=== PATIENT | male | born 1985 | race Caucasian/White ===

== ENCOUNTER 2017-02-27 07:20 | Emergency (ER) | payer OTHER ==
[2017-02-27] MEDS ORDERED: DEXAMETHASONE 10 MG/ML VIAL PO STA (08:42)
[2017-02-27] MEDS ORDERED: KETOROLAC 60 MG/2 ML VIAL IM STA (08:42)
[2017-02-27] MEDS ORDERED: KETOROLAC 60 MG/2 ML VIAL ONE (08:49)
[2017-02-27] MEDS ORDERED: CHERRY SYRUP 10 ML UDC PO ONE (08:49)
[2017-02-27] MEDS ORDERED: DEXAMETHASONE 10 MG/ML VIAL ONE (08:49)
== END 2017-02-27 09:22 | disposition home or self-care (01) ==
DX: M43.6 Torticollis (principal)
CPT/HCPCS: 96372; 99283; A9270

== ENCOUNTER 2017-04-03 17:42 | Emergency (ER) | payer OTHER ==
[2017-04-03 17:47] VITALS: BP 128/75
[2017-04-03] MEDS ORDERED: KETOROLAC 60 MG/2 ML VIAL IM STA (18:12)
[2017-04-03] MEDS ORDERED: diazePAM INJ 5 MG/ML SYRINGE IM STA (18:12)
[2017-04-03] MEDS ORDERED: HYDROcod/ACET 5/325 Prepack 6 PO STA (18:13)
[2017-04-03] MEDS ORDERED: CYCLOBENZAPRINE 10 MG Prepack 2 PO PRN (18:13)
[2017-04-03] MEDS ORDERED: HYDROcod/ACET 5/325 Prepack 6 PO ONE (18:17)
[2017-04-03] MEDS ORDERED: CYCLOBENZAPRINE 10 MG Prepack 2 PO ONE (18:17)
[2017-04-03] MEDS ORDERED: KETOROLAC 60 MG/2 ML VIAL ONE (18:17)
[2017-04-03] MEDS ORDERED: diazePAM INJ 5 MG/ML SYRINGE ONE (18:17)
--- NOTE | 2017-04-03 18:17 | ED Physician Documentation ---
PD HPI NECK PAIN - Stated complaint Stated Complaint: NECK PX - Chief complaint Chief Complaint: Back Pain - History obtained from History obtained from: Patient, Family - History of Present Illness Timing - onset: Other (He woke today with right-sided neck pain without specific injury. He had a similar episode a month ago which improved after medications. He has no underlying medical issues. The pain does not radiate but has a spasm-like severe component to it.) Review of Systems Constitutional: denies: Fever, Chills Throat: reports: Reviewed and negative Cardiac: reports: Reviewed and negative Respiratory: reports: Reviewed and negative PD PAST MEDICAL HISTORY - Present Medications Home Medications: Ambulatory Orders Medication Instructions Recorded Confirmed HYDROcod/ACETAM 5/325 [[place] 5/325] 1 - 2 ea PO Q6H PRN #15 tablet 04/03/17 diazePAM [Valium] 5 mg PO TID PRN #15 tablet 04/03/17 - Allergies Allergies/Adverse Reactions: Allergies Allergy/AdvReac Type Severity Reaction Status Date / Time No Known Drug Allergies Allergy Verified 04/03/17 17:47 - Social History Does the pt smoke?: No Smoking Status: Never smoker - Immunizations Immunizations are current?: Yes PD ED PE NORMAL - Vitals Vital signs reviewed: Yes - General General: Alert and oriented X 3 - Neck Neck: Supple, no meningeal sign, Other (Uncomfortable in holding his neck slightly rotated to the left, tender over the right sternocleidomastoid without midline tenderness. Equal upper extremity chief of pediatric urology strength, thumb extension, interossei, wrist flexion and extension. Symmetric sensation throughout the arms and symmetric reflexes.) - Abdomen Abdomen: Non tender - Neuro Neuro: Alert and oriented X 3, Normal speech - Psych Psych: Normal mood, Normal affect Results - Vitals Vitals: Vital Signs - 24 hr 04/03/17 17:45 Temperature 36.3 C L Heart Rate 80 Respiratory 16 Rate Blood Pressure 128/75 O2 Saturation 97 Oxygen O2 Source Room air PD MEDICAL DECISION MAKING - ED course ED course: The patient and family were counseled as to the diagnosis and need for followup. I counseled the patient with regard to signs and symptoms that would necessitate an urgent reevaluation in the emergency department. They understand they are welcome to return at any time if worse or if not improving as expected. This document was made in part using voice recognition software. While efforts are made to proofread this document, sound alike and grammatical errors may occur. Departure - Departure Disposition: 01 Home, Self Care Clinical Impression: Wry neck Condition: Good Record reviewed to determine appropriate education?: Yes Instructions: Torticollis Prescriptions: HYDROcod/ACETAM 5/325 [[place] 5/325] 1 - 2 ea PO Q6H PRN #15 tablet PRN Reason: Pain diazePAM [Valium] 5 mg PO TID PRN #15 tablet PRN Reason: Spasms Comments: Call your doctor to arrange a follow up appointment. Make the next available appointment. In the interim return anytime if worse or if new symptoms develop. Do not drink or drive while on narcotic pain medicine. Note that many narcotic pain relievers also contain tylenol/acetaminophen. Please ensure that your total dose of acetaminophen from all sources does not exceed 3 grams (3000mg) per day. You may constipated on this medication, take a stool softener such as "Colace" twice a day while you are on it. Also recommend a [id number] laxative such as senna or MiraLAX any day that you do not have a bowel movement. If you received narcotic pain medication in the emergency department, do not drive or operate machinery for the next 24 hours.
== END 2017-04-03 18:28 | disposition home or self-care (01) ==
LOC: ED 17:42
DX: M43.6 Torticollis (principal)
CPT/HCPCS: 96372; 99283

== ENCOUNTER 2019-04-07 04:59 | Emergency (ER) | payer OTHER ==
--- NOTE | 2019-04-07 05:24 | ED Physician Documentation ---
PD HPI BACK PAIN - Stated complaint Stated Complaint: BACK PAIN - Chief complaint Chief Complaint: Back Pain - History obtained from History obtained from: Patient - History of Present Illness Timing - onset: Last night Timing - details: Abrupt onset Pain level now: 9 Location: Lower, Right, Left Quality: Pain, Spasm, Similar to prior episodes Associated symptoms: No: Fever, Weakness, Numbness, Incontinent of urine, Unable to urinate, Incontinent of stool Improves with: Rest Worsened by: Movement Recently seen: Not recently seen - Additional information Additional information: while playing basketball last night, patient landed after a layup; he landed on his feet (did not fall) but had sudden onset of LBP across lower back, worse on left. The pain gradually worsened, but he was able to fall asleep after taking Robaxin. After only a few hours of sleep, he awoke due to now severe LBP. has had similar back pain in the past Review of Systems Constitutional: denies: Fever : denies: Incontinent Musculoskeletal: reports: Back pain. denies: Neck pain, Extremity pain, Joint pain, Extremity swelling, Joint swelling Neurologic: denies: Focal weakness, Numbness PD PAST MEDICAL HISTORY - Past Medical History Past Medical History: Yes Musculoskeletal: Chronic back pain - Past Surgical History Past Surgical History: Yes - Present Medications Home Medications: Ambulatory Orders Medication Instructions Recorded Confirmed HYDROcod/ACETAM 5/325 [[place] 5/325] 1 - 2 ea PO Q6H PRN #15 tablet 04/03/17 diazePAM [Valium] 5 mg PO TID PRN #15 tablet 04/03/17 Oxycodone HCl/Acetaminophen 1 - 2 each PO Q6H PRN #14 tablet 04/07/19 [Percocet 5-325 mg Tablet] diazePAM [Valium] 5 - 10 mg PO TID PRN #15 tablet 04/07/19 - Allergies Allergies/Adverse Reactions: Allergies Allergy/AdvReac Type Severity Reaction Status Date / Time No Known Drug Allergies Allergy Verified 04/03/17 17:47 - Social History Does the pt smoke?: No Smoking Status: Never smoker Does the pt drink ETOH?: Yes Does the pt have substance abuse?: No - Immunizations Immunizations are current?: Yes PD ED PE NORMAL - Vitals Vital signs reviewed: Yes - General General: Alert and oriented X 3, Well developed/nourished, Other (NAD at rest but obvious severe painful distress with any movement involving lower back) - Neck Neck: No bony TTP - Cardiac Cardiac: RRR, No murmur - Respiratory Respiratory: No respiratory distress, Clear bilaterally - Back Back: No CVA TTP, Other (bilateral parathroracic tenderness, L>R) - Neuro Neuro: No motor deficit, No sensory deficit Results - Vitals Vitals: Vital Signs - 24 hr 04/07/19 04/07/19 04/07/19 05:02 05:17 06:52 Temperature 36.5 C Heart Rate 99 72 Respiratory 28 H 22 20 Rate Blood Pressure 127/82 H 136/66 H O2 Saturation 98 98 04/07/19 07:52 Temperature 36.6 C Heart Rate 70 Respiratory 17 Rate Blood Pressure 124/54 L O2 Saturation 100 Oxygen O2 Source Room air PD MEDICAL DECISION MAKING - ED course Complexity details: re-evaluated patient, considered differential, d/w patient ED course: appeared more comfortable and reported some relief with 2mg IM dilaudid and 5mg PO valium ,but pain rapidly worsened with movement and thus given repeat dose of both of these medications. On reevaluation after repeat doses, he is clearly more comfortable and reports adequate relief Departure - Departure Disposition: 01 Home, Self Care Clinical Impression: Back pain Condition: Good Instructions: ED Sprain Strain Lumbar Follow-Up: JENNIFER KELLY [Primary Care Provider] - Prescriptions: diazePAM [Valium] 5 - 10 mg PO TID PRN #15 tablet PRN Reason: Spasms Oxycodone HCl/Acetaminophen [Percocet 5-325 mg Tablet] 1 - 2 each PO Q6H PRN #14 tablet PRN Reason: pain Forms: Activity restrictions Discharge Date/Time: 04/07/19 07:52
[2019-04-07] MEDS ORDERED: diazePAM 5 MG TABLET PO STA ×2 (05:38→06:44)
[2019-04-07] MEDS ORDERED: HYDROmorphone 1 MG/ML CARPUJECT IM STA ×2 (05:38→06:44)
[2019-04-07 07:53] VITALS: BP 124/54
== END 2019-04-07 07:52 | disposition home or self-care (01) ==
LOC: ED 04:59
DX: M54.5 Low back pain (principal)
CPT/HCPCS: 96372; 99283; A9270; J1170

== ENCOUNTER 2019-04-23 10:40 | Outpatient (CLI) | payer OTHER | END 2019-04-23 10:41 | disposition home or self-care (01) | LOC: SC 10:40 | PROVIDERS: ATTEND Internal Medicine Pulmonary Disease | DX: R06.83 Snoring (principal); R06.81 Apnea, not elsewhere classified; G47.8 Other sleep disorders; R41.89 Other symptoms and signs involving cognitive functions and awareness; G47.10 Hypersomnia, unspecified; E66.9 Obesity, unspecified; Z68.31 Body mass index [BMI] 31.0-31.9, adult | CPT/HCPCS: 99203; 99212 ==

== ENCOUNTER 2019-05-07 19:25 | Outpatient (CLI) | payer OTHER | END 2019-05-07 19:26 | disposition home or self-care (01) | LOC: SC 19:25 | PROVIDERS: ATTEND Internal Medicine Pulmonary Disease | DX: R06.83 Snoring (principal); R06.81 Apnea, not elsewhere classified; R51 Headache | CPT/HCPCS: 95810 ==

== ENCOUNTER 2019-05-19 19:18 | Outpatient (CLI) | payer OTHER | END 2019-05-19 19:19 | disposition home or self-care (01) | LOC: SC 19:18 | PROVIDERS: ATTEND Internal Medicine Pulmonary Disease | DX: R06.83 Snoring (principal) | CPT/HCPCS: 95810 ==

== ENCOUNTER 2019-08-06 09:11 | Outpatient (CLI) | payer OTHER ==
[2019-08-06 10:21] VITALS: BP 130/82
--- NOTE | 2019-08-06 10:21 | SLEEP CARE CONSULTATION ---
Information from patient questionnaire entered by Heydi Reynoso. I have reviewed and concur with the information entered by Heydi Reynoso. This document represents the service I personally performed and the decisions made by me, Merari Dewitt, RN, MSN, CERTIFIER. History of Present Illness Initial [place] Sleepiness Scale score: 17 Current [place] Sleepiness Scale score: 17 Additional HPI information: DI ZUNIGA returns for follow up of the recently performed polysomnography and informed of findings. Patient stated he has gained 20 pounds since last seen and since sleep study. He has noted increased fragmentation of sleep. He was videoed by girlfriend of oral venting /m puffing in his sleep. She has also noted gurgling when he sleeps on his back nightly so his girlfriend will turn him to his side and his symptoms resolve. His snoring is louder and he is now waking himself up to his snore most nights. He is waking to dry throat in the morning. He also is waking gasping in his sleep a few times a week. He is continued to wake up tired and is tired and sleepy through out the day. The patient was informed of the polysomnography findings as noted later in report I explained the pathophysiology behind obstructive sleep apnea. Patient does not have sleep apnea and was advised how weight gain could increase the risk of developing sleep apnea in the future. I strongly encouraged the patient to lose weight. Since his symptoms are increased with current weight gain especially on his back. . Patient has snoring. Snoring can be reduced by weight loss. Weight loss is best achieved with diet consult. Patient instructed to contact PCP for referral if considers. Snoring can also be treated with an oral appliance from a dentist. Advised to check insurance coverage if considers. In addition, an ENT evaluation can be do to see if other treatment is indicated. Patient counseled not drink alcohol less than 4 hours before bedtime as it can increase snoring and apnea. Patient was cautioned about risks of drowsy driving until sleepiness symptoms resolve. Patient denies drowsy driving. AAS patient education on snoring and sleep apnea given and reviewed. Sleep Study - Polysomnography Polysomnography findings: The quality of the study is good. The patient had slightly reduced sleep efficiency due to a prolonged awakening in the middle of the night.. The sleep architecture was otherwise normal. Respiratory monitoring showed no significant sleep disordered breathing (AHI = 1.2) or hypoxia (luís oxygen saturation of 89%). The patient slept adequately in supine position (supine AHI = 2.0; non- supine = 0.56). Snore was light to moderate in intensity. There was no significant periodic leg movement of sleep. Cardiac rhythm was normal sinus rhythm without significant arrhythmia. No abnormal behavior (parasomnia) observed during the night. Allergies and Home Medications Known drug allergies: No Home medication list reviewed: Yes (Cautioned of effects of pain medications and muscle relaxants to apnea) Review of Systems Review of systems same as previous: Yes Physical Exam Blood Pressure: 130/82 Heart Rate: 71 O2 Saturation: 97 Height: 6 ft 1.5 in Weight: 270 lb 12.8 oz Weight change since last visit: gained 20 pounds and was not this weight at time of sleep study. Body Mass Index: 35.2 BMI Classification: Obesity Class 2 Neck circumference: 17 (increaed from 16. 5 inches ) Nostrils: patent to airflow Mouth and throat: normal Soft palate: normal Hard palate: normal Uvula: normal Uvula visualization: 50% Mallampati Class II Tongue: normal in size Tonsils: small Chin and jaw: normal size and position Heart: regular rate and rhythm Impression and Plan 1. Snoring but no significant sleep disordered breathing on this sleep study. Patient advised that often weight loss will reduce snoring as well as apnea risk. However, he has gained significant weight since his past sleep study with increased symptoms noted at night as noted below. 2. Suspected sleep apnea. Current symptoms include waking to snoring and gasping in sleep. His girlfriend has noted increased snoring and gurgling in his sleep in supine position. Patient reports waking 3-4 times a nights to bathroom or unknown reason as well as unrefreshed sleep, fatigue and excessive daytime sleepiness. Thus a repeat sleep study is advised for further evaluation due to increase in symptoms since weight gain of 20 pounds increasing his BMI from 32.5 to 35.2 which can increase apnea risk. His neck circumference has also increased to 17 inches which will increase apnea risk. Due to difficulty sleeping at polysomnography except with use of an Ambien, I recommend a home sleep study. Until then, he is advised to avoid supine sleep with pillow positioning until sleep study is repeated. Patient agreed with plan. For his concerns about waking after 4 hours and unable to return to sleep due to things on his mind and adjustment to recent divorce, I suggested he speak to his PCP about counseling referral. 1. Schedule home sleep study 2. Avoid supine sleep until sleep study. 3. Attempt to lose weight. 4. Follow up with PCP re counseling. 4. Return to review results. I spent 100% of this 30 minute visit face to face with the patient with greater than 50% of this was spent time counseling the patient and coordination of care.
== END 2019-08-06 09:12 | disposition home or self-care (01) ==
LOC: SC 09:11
PROVIDERS: ATTEND Nurse Practitioner Family
DX: R06.83 Snoring (principal); R53.83 Other fatigue; G47.10 Hypersomnia, unspecified; E66.9 Obesity, unspecified; Z68.35 Body mass index [BMI] 35.0-35.9, adult
CPT/HCPCS: 99212; 99214

== ENCOUNTER 2019-09-19 19:30 | Outpatient (CLI) | payer OTHER | END 2019-09-19 23:59 | disposition home or self-care (01) | LOC: SC 19:30 | PROVIDERS: ATTEND Internal Medicine Pulmonary Disease | DX: R06.83 Snoring (principal); G47.10 Hypersomnia, unspecified; G47.00 Insomnia, unspecified | CPT/HCPCS: 95806 ==

== ENCOUNTER 2019-12-05 08:31 | Outpatient (CLI) | payer OTHER ==
[2019-12-05 09:02] VITALS: BP 110/80
--- NOTE | 2019-12-05 09:02 | SLEEP CARE CONSULTATION ---
Information from patient questionnaire entered by Jessenia Givens. I have reviewed and concur with the information entered by Jessenia Givens. This document represents the service I personally performed and the decisions made by me, Merari Dewitt, RN, MSN, HOSPITAL INSURANCE REPRESENTATIVE. History of Present Illness Initial [place] Sleepiness Scale score: 17 Current [place] Sleepiness Scale score: 17 Additional HPI information: DI ZUNIGA returns for follow up of the recently performed home sleep study. I explained the pathophysiology behind obstructive sleep apnea. Patient does not have sleep apnea and was advised how weight gain could increase the risk of developing sleep apnea in the future. I strongly encouraged the patient to continue lose weight. Patient has snoring. Snoring can be reduced by weight loss. Weight loss is best achieved with diet consult. Patient instructed to contact PCP for referral. Snoring can also be treated with an oral appliance from a dentist. Advised to check insurance coverage if pursues this treatment. In addition, an ENT evaluation can be do to see if other treatment is indicated. Patient counseled not drink alcohol less than 4 hours before bedtime as it can increase snoring and apnea. Patient was cautioned about risks of drowsy driving until sleepiness symptoms resolve. Patient denies drowsy driving. He strives for a regular sleep schedule when not interrupted by service, . Usual wake time is 5am and usual bedtime 9- 9:30pm. Allergies and Home Medications Known drug allergies: No Home medication list reviewed: Yes Allergy and home medication list: Flexeril 10mg prn ,none for months Review of Systems Review of systems same as previous: Yes Physical Exam Blood Pressure: 110/80 Cuff size: long Heart Rate: 70 O2 Saturation: 97 Height: 6 ft 1.5 in Weight: 266 lb Weight change since last visit: lost 4 pounds Body Mass Index: 34.6 BMI Classification: Obese Impression and Plan 1. Snoring, loud per girlfriend, but no significant sleep disordered breathing. Patient advised that often weight loss will reduce snoring as well as apnea risk. An oral appliance can also be used for snoring. This would require a dental consultation. Patient cautioned not to use other online appliances as can cause bite issues. Patient is not interested in oral appliance at this time . A list of accredited dentists in area and one local dentist who makes oral appliances given. Patient is advised to check if insurance will cover. An ENT consult can also be helpful to determine if any other treatment is an option. Currently patient does not have difficulty breathing through nose. But if weight loss does not reduce snoring a consultation is advisable. 2. Obesity, Patient has started to lost weight. Currently patients BMI is 35.2 obesity class 2. Obesity increases the risk of apnea, and overall health risks especially cardiovascular and diabetes. Thus patient is advised to continue to continue to lose weight. Weight loss can be done with reducing portion size, reducing refined foods and balancing content with vegetables, fruit and protein. In addition tracking food intake will allow awareness of how to modify diet to achieve weight loss goals. Also eating more slowly will allow more awareness of food intake and enjoyment of food while assisting patient to modify intake at each meal. A diet consultation can be helpful in achieving optimal weight loss goals. The BMI chart was reviewed. The patient would like to reduce to 210 pounds bringing BMI down to about 27. Patient encouraged to discuss their weight loss goals with their PCP and consider a referral to a intermediate card tender. 3. Fatigue and hypersomnia with [place] sleepiness scale of 17 despite regular sleep schedule and adequate sleep noted on sleep history. Thus Patient advised to follow up with PCP for further evaluation. He has a family history hypothyroidism so this as well as other medical conditions should be ruled out. * Continue to lose weight * Avoid alcohol consumption near bedtime * The patient is cautioned about driving until sleepiness is completely resolved. * Follow up with PCP for further evaluation of fatigue/hypersomnia and intermediate card tender referral. Time Spent with Patient (minutes): 25 I spent 100% of this visit face to face with the patient with greater than 50% of this was spent time counseling the patient and coordination of care.
== END 2019-12-05 08:32 | disposition home or self-care (01) ==
LOC: SC 08:31
PROVIDERS: ATTEND Nurse Practitioner Family
DX: R06.83 Snoring (principal); E66.9 Obesity, unspecified; Z68.34 Body mass index [BMI] 34.0-34.9, adult; R53.83 Other fatigue; G47.10 Hypersomnia, unspecified
CPT/HCPCS: 99212; 99214

== ENCOUNTER 2021-07-03 14:13 | Emergency (ER) | payer OTHER ==
[2021-07-03 15:06] LABS: BASOPHILS # (AUTO) 0.1 10^3/uL (0.0-0.1); BASOPHILS % (AUTO) 1.2 %; EOSINOPHILS # (AUTO) 0.1 10^3/uL (0.0-0.7); HCT - HEMATOCRIT 45.4 % (42.0-52.0); HGB - HEMOGLOBIN 15.8 g/dL (14.0-18.0); LYMPHOCYTES % (AUTO) 33.1 %; MEAN CORPUSCULAR HEMOGLOBIN 30.4 pg (27.0-31.0); MEAN CORPUSCULAR HGB CONC 34.8 g/dL (32.0-36.0); MEAN CORPUSCULAR VOLUME 87.5 fL (80.0-94.0); MEAN PLATELET VOLUME 10.5 fL (7.4-11.4); MONOCYTES # (AUTO) 0.5 10^3/uL (0.0-1.0); MONOCYTES % (AUTO) 8.1 %; NEUTROPHILS # (AUTO) 3.4 10^3/uL (1.5-6.6); NEUTROPHILS % (AUTO) 55.4 %; PLT - PLATELET COUNT 227 10^3/uL (130-450); RED BLOOD COUNT 5.19 10^6/uL (4.70-6.10); RED CELL DISTRIBUTION WIDTH 11.9 % (12.0-15.0)
[2021-07-03 15:16] LABS: ALBUMIN 4.5 g/dL (3.2-5.5); ALBUMIN/GLOBULIN RATIO 1.6 (1.0-2.2); CALCIUM 9.3 mg/dL (8.5-10.3); CREATININE 1.3 mg/dL (0.6-1.2); POTASSIUM 4.1 mmol/L (3.5-5.0); TOTAL PROTEIN 7.4 g/dL (6.7-8.2)
[2021-07-03] MEDS ORDERED: HYDROmorphone 1 MG/ML CARPUJECT IVP STA (15:42)
[2021-07-03] MEDS ORDERED: ONDANSETRON 4 MG/2 ML VIAL IVP STA (15:43)
--- NOTE | 2021-07-03 15:46 | ED Physician Documentation ---
History of Present Illness - Stated complaint Stated Complaint: ABD PX - Chief complaint Chief Complaint: Abd Pain - Additonal information Additional information: 36-year-old male presents the emergency department for evaluation of acute right lower quadrant and right groin pain. 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 He thought perhaps he may have pulled a muscle but over the last 72 hours pain is gotten progressively worse and now radiates to his testy. He is unable to walk without discomfort. No fevers or vomiting. Denies dysuria urgency or frequency. He thinks he may have a hernia though no history of similar in the past. No pertinent past surgical history. Denies any pertinent past medical history. Review of Systems Constitutional: denies: Fever, Chills Eyes: reports: Reviewed and negative Ears: reports: Reviewed and negative Throat: reports: Reviewed and negative Cardiac: reports: Reviewed and negative GI: reports: Abdominal Pain. denies: Nausea, Vomiting, Diarrhea, Bloody / black stool : denies: Dysuria, Hesitancy Skin: denies: Rash, Lesions Musculoskeletal: denies: Neck pain, Back pain Neurologic: reports: Reviewed and negative PD PAST MEDICAL HISTORY - Past Medical History Musculoskeletal: Chronic back pain - Past Surgical History Past Surgical History: Yes - Present Medications Home Medications: Ambulatory Orders Medication Instructions Recorded Confirmed HYDROcod/ACETAM 5/325 [[place] 5/325] 1 - 2 ea PO Q6H PRN #15 tablet 04/03/17 diazePAM [Valium] 5 mg PO TID PRN #15 tablet 04/03/17 Oxycodone HCl/Acetaminophen 1 - 2 each PO Q6H PRN #14 tablet 04/07/19 [Percocet 5-325 mg Tablet] diazePAM [Valium] 5 - 10 mg PO TID PRN #15 tablet 04/07/19 HYDROcod/ACETAM 5/325 [[place] 5/325] 1 tablet PO BID PRN #10 tablet 07/03/21 - Allergies Allergies/Adverse Reactions: Allergies Allergy/AdvReac Type Severity Reaction Status Date / Time No Known Drug Allergies Allergy Verified 04/03/17 17:47 - Social History Does the pt smoke?: No Smoking Status: Never smoker Does the pt drink ETOH?: Yes Does the pt have substance abuse?: No - Immunizations Immunizations are current?: Yes PD ED PE EXPANDED - General General: Alert, In Pain, In distress - Cardiac Cardiac: Regular Rate, Radial strong equal, Cap refill < 2 sec. No: Murmur Present - Respiratory Respiratory: Clear to ausultation triston. No: Distress, Labored - Abdomen Abdomen: Normal Bowel sounds, Tender to palpation (significant TTP RLQ; equivocal mcburneys; Tenderness righ tinguinal canal, but no palpable hernia. + cremasteric bilaterally. No scrotal swelling, tenderness) - Male Male : Normal lie/cremastaric, Other (unable to appreciate inguinal hernia). No: Testicular Mass, Tenderness - Derm Derm: Normal color, Warm and dry. No: Rash - Extremities Extremities: Normal. No: Deformity, Tenderness Results - Vitals Vitals: Vital Signs - 24 hr 07/03/21 14:23 Temperature 36.8 C Heart Rate 80 Respiratory 16 Rate Blood Pressure 128/98 H O2 Saturation 95 Oxygen O2 Source Room air - Labs Labs: Laboratory Tests 07/03/21 07/03/21 07/03/21 14:58 14:58 15:35 WBC 6.0 RBC 5.19 Hgb 15.8 Hct 45.4 MCV 87.5 MCH 30.4 MCHC 34.8 RDW 11.9 L Plt Count 227 MPV 10.5 Neut # (Auto) 3.4 Lymph # (Auto) 2.0 [place] # (Auto) 0.5 Eos # (Auto) 0.1 Baso # (Auto) 0.1 Absolute Nucleated RBC 0.00 Nucleated RBC % 0.0 Sodium 142 Potassium 4.1 Chloride 104 Carbon Dioxide 28 Anion Gap 10.0 BUN 20 Creatinine 1.3 H Estimated GFR (MDRD) 62 L Glucose 117 H Calcium 9.3 Total Bilirubin 1.0 AST 17 ALT 20 Alkaline Phosphatase 51 Total Protein 7.4 Albumin 4.5 Globulin 2.9 Albumin/Globulin Ratio 1.6 Lipase 37 Urine Color YELLOW Urine Clarity CLEAR Urine pH 8.0 H Ur Specific Adrian 1.020 Urine Protein NEGATIVE Urine Glucose (UA) NEGATIVE Urine Ketones NEGATIVE Urine Occult Blood NEGATIVE Urine Nitrite NEGATIVE Urine Bilirubin NEGATIVE Urine Urobilinogen 0.2 (NORMAL) Ur Leukocyte Esterase NEGATIVE Ur Microscopic Review NOT INDICATED Urine Culture Comments NOT INDICATED - Rads (name of study) CT abd Radiology: Final report received (No inguinal hernia. No ventral abdominal wall hernia. Normal appendix. No bowel obstruction. No ab normal bowel wall thickening no free fluid or free air.) PD MEDICAL DECISION MAKING - ED course Complexity details: reviewed results, d/w patient ED course: 36-year-old male presents emergency department for evaluation of acute and severe right lower quadrant abdominal pain that began 3 days ago after throwing heavy sonar bruits. He was concerned that he may have a rupture of one of his abdominal muscles or a hernia. On exam he is quite tender in the right lower quadrant but no inguinal hernia was appreciated. Screening labs are unremarkable. CT of the abdomen did not show inguinal hernia or abdominal hernia. He had a normal appendix. There was no stranding the muscle body or free fluid in the abdomen. I suspect that he likely has severe muscle strain secondary to his throwing the stone or bruits. He is markedly improved following IV fluids as well as Dilaudid. A limited amount of hydrocodone will be prescribed for pain relief at home. Emergent return precautions were discussed. I am prescribing a short course of short-acting opioid pain medication for this patient. 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 I have discussed that the opioids are for short term therapy only, and will not be refilled from the ED. Departure - Departure Disposition: 01 Home, Self Care Clinical Impression: Right lower quadrant abdominal pain Condition: Stable Record reviewed to determine appropriate education?: Yes Prescriptions: HYDROcod/ACETAM 5/325 [[place] 5/325] 1 tablet PO BID PRN #10 tablet PRN Reason: Pain Comments: Pedro you were seen in the emergency department for severe right lower quadrant abdominal pain. Your screening labs today were essentially normal. There was concern that this could have been a hernia however the CT of your abdomen did not show an abdominal or an inguinal hernia. Your appendix was also normal. You most likely strained or pulled your muscles when you were throwing the cylinder bruits. I do not recommend that you work again until Tuesday at the earliest. I have prescribed a limited amount of hydrocodone for severe pain. I recommend you try Tylenol and ibuprofen [id number] before this. 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 I am prescribing a short course of narcotic pain medication for you. These are potentially dangerous and addictive medications that should be used carefully. These medications may constipate you. Take an cnda-ewn-pgasinj stool softener (docusate) twice daily with plenty of water while taking these medications. If you go 24 hours without a bowel movement, take aqih-acd-hjbpswa miralax, per package instructions. Do not drink or drive while taking these medications. If you received narcotic or sedating medications while in the emergency department, do not drive for 24 hours. Store this medication in a safe, secure place and out of reach of children. It is a violation of federal law to give or sell this medication to another person or to use in a manner other than prescribed. The ED will not refill narcotic prescriptions, including prescriptions lost or stolen. To dispose of unwanted medications: 1. [facility] at [address] [facility] [address] in [place] has a medication drop box. They accept prescription medications (in pill form) Tuesday through Tuesday 9:00 a.m. to 5:00 p.m. 2. The [facility] [employer] accepts prescription medications (in pill form only) for disposal year round. Call for more information. 3. Contact the [facility] for the next [facility] sponsored prescription drug collection event. , [phone], or [phone]; Note that many narcotic pain relievers also contain Tylenol/acetaminophen. Please ensure that your total dose of acetaminophen from all sources does not exceed 3 g (3000 mg) per day.
[2021-07-03] MEDS ORDERED: IOPAMIDOL-300 100 ML VIAL ONE (15:50)
[2021-07-03 16:10] LABS: BILIRUBIN,URINE NEGATIVE (NEGATIVE); GLUCOSE, URINE (UA) NEGATIVE (NEGATIVE); KETONES,URINE (UA) NEGATIVE (NEGATIVE); LEUKOCYTE ESTERASE, URINE NEGATIVE (NEGATIVE); NITRITE,URINE NEGATIVE (NEGATIVE); OCCULT BLOOD,URINE NEGATIVE (NEGATIVE); PROTEIN,URINE NEGATIVE (NEGATIVE); UROBILINOGEN,URINE 0.2 (NORMAL) E.U./dL (NORMAL)
[2021-07-03 16:12] LABS: CLARITY,URINE CLEAR (CLEAR)
--- NOTE | 2021-07-03 16:32 | CT Report ---
PROCEDURE: Abdomen/Pelvis W INDICATIONS: acute right groin pain; ?incarcerated hernia CONTRAST: IV CONTRAST: Isovue 300 ml: 100 PO CONTRAST: *NO PO CONTRAST TECHNIQUE: After the administration of IV contrast, 5 mm thick sections acquired from the diaphragms to the symp hysis. 5 mm thick coronal and sagittal reformats were acquired. For radiation dose reduction, the f ollowing was used: automated exposure control, adjustment of mA and/or kV according to patient size. COMPARISON: None. FINDINGS: Image quality: Excellent. ABDOMEN: Lung bases: Lung bases are clear. Heart size is normal. Solid organs: Liver and spleen are normal in size and enhancement. Gallbladder is within normal hay its. Biliary system is non dilated. Pancreas enhances normally. No adrenal nodules. Kidneys demon strate normal size and enhancement, without hydronephrosis. Peritoneum and bowel: Bowel loops demonstrate normal wall thickness and caliber. No free fluid or a ir. Appendix is visualized and is within normal limits. Nodes and vessels: No retroperitoneal or mesenteric adenopathy by size criteria. Aorta and inferior vena cava are normal in size. Miscellaneous: No ventral hernias. PELVIS: Genitourinary: Bladder wall thickness is normal. Miscellaneous: No inguinal hernias or adenopathy. Bones: No suspicious bony lesions. No vertebral body compression fractures. IMPRESSION: 1. No inguinal hernia. No ventral abdominal wall hernia. 2. Normal appendix. No bowel obstruction. No abnormal bowel wall thickening. No free fluid of free ai r. Reviewed by: Cash Ram MD on 07/03/2021 4:30 PM PDT Approved by: Cash Ram MD on 07/03/2021 4:30 PM PDT Station ID: [id number]
[2021-07-03] MEDS ORDERED: IOPAMIDOL-300 100 ML VIAL IVP ONE (16:47)
[2021-07-03 17:31] VITALS: BP 148/78
== END 2021-07-03 17:31 | disposition home or self-care (01) ==
LOC: ED 14:13
DX: R10.31 Right lower quadrant pain (principal); X50.0XXA Overexertion from strenuous movement or load, initial encounter; Y93.89 Activity, other specified; Y99.1 Military activity
CPT/HCPCS: 36415; 74177; 80053; 81003; 83690; 85025; 96374; 99284; J1170; Q9967; 81001; 87086

== ENCOUNTER 2021-07-26 14:23 | Emergency (ER) | payer OTHER ==
[2021-07-26] MEDS ORDERED: ALBUTEROL 1 PUFF INH STA (15:20)
[2021-07-26] MEDS ORDERED: LIDOCAINE VISCOUS 2% 15 ML UDC MM STA (15:21)
--- NOTE | 2021-07-26 15:24 | ED Physician Documentation ---
History of Present Illness - Stated complaint Stated Complaint: FEVER/DIZZY/COUGH - Chief complaint Chief Complaint: Resp - Additonal information Additional information: 36-year-old male Presents emergency department for evaluation of fever 102.5, severe cough productive with sputum, myalgias and chills. He is fully vaccinated for COVID-19 as of February 2021. Denies any sick contacts. recently traveled from [facility] Review of Systems Constitutional: reports: Fever, Chills, Myalgias Eyes: reports: Reviewed and negative Ears: reports: Reviewed and negative Nose: reports: Rhinorrhea / runny nose, Congestion Throat: reports: Sore throat Cardiac: denies: Chest pain / pressure, Palpitations, Pedal edema Respiratory: reports: Dyspnea, Cough GI: reports: Reviewed and negative : reports: Reviewed and negative PD PAST MEDICAL HISTORY - Past Medical History Past Medical History: Yes Psych: Depression, Anxiety Musculoskeletal: Chronic back pain - Past Surgical History Past Surgical History: Yes - Present Medications Home Medications: Ambulatory Orders Medication Instructions Recorded Confirmed Benzonatate [Tessalon] 100 mg PO TID PRN #30 cap 07/26/21 Cyclobenzaprine [Flexeril] 10 mg PO TID PRN 07/26/21 07/26/21 DULoxetine [Cymbalta] 30 mg PO DAILY 07/26/21 07/26/21 Lidocaine Viscous 2% [Xylocaine 5 ml MM Q4H #100 ml 07/26/21 Viscous 2%] SUMAtriptan [Imitrex] 50 mg PO DAILY PRN 07/26/21 07/26/21 - Allergies Allergies/Adverse Reactions: Allergies Allergy/AdvReac Type Severity Reaction Status Date / Time No Known Drug Allergies Allergy Verified 07/26/21 14:44 - Social History Does the pt smoke?: No Smoking Status: Never smoker Does the pt drink ETOH?: Yes Does the pt have substance abuse?: No - Immunizations Immunizations are current?: Yes PD ED PE EXPANDED - General General: Alert, No acute distress - Cardiac Cardiac: Regular Rate, Radial strong equal, Pedal strong equal - Respiratory Respiratory: Wheezing, Other (Generally rhonchorous lung sounds.) - Abdomen Abdomen: Normal Bowel sounds. No: Tender to palpation - Neuro Neuro: Alert and Oriented X 3, CNII-XII intact Results - Vitals Vitals: Vital Signs - 24 hr 07/26/21 07/26/21 14:42 15:41 Temperature 37.2 C Heart Rate 97 100 Respiratory 22 20 Rate Blood Pressure 130/92 H O2 Saturation 99 Oxygen O2 Source Room air - Rads (name of study) CXR Radiology: Final report received (No acute cardiopulmonary process.) PD MEDICAL DECISION MAKING - ED course Complexity details: reviewed results, re-evaluated patient, d/w patient ED course: 36-year-old male presents the emergency department for Evaluation of fever, cough chills myalgias. He is fully vaccinated for COVID-19. However anytime he coughs he has a severe cough reflex it is now causing him to have a headache and a sore throat. He would like COVID-19 screening which we will accommodate today. A chest x-ray is unremarkable. However even light breathing seems to induce coughing spasm. Patient was given lidocaine to swallow which did seem to armando the cough to some extent. I will discharge him with prescription for lidocaine as well as Tessalon Perles. Advised to remain in quarantine until Covid results are known. However clinically with the exception of his cough he has unremarkable vital signs and unremarkable cardiopulmonary auscultation. Emergent return precautions were discussed Departure - Departure Disposition: 01 Home, Self Care Clinical Impression: Upper respiratory infection Qualifiers: URI type: unspecified URI Qualified Code(s): J06.9 - Acute upper respiratory infection, unspecified Condition: Stable Record reviewed to determine appropriate education?: Yes Instructions: ED Viral Syndrome Prescriptions: Benzonatate [Tessalon] 100 mg PO TID PRN #30 cap PRN Reason: Cough Lidocaine Viscous 2% [Xylocaine Viscous 2%] 5 ml MM Q4H #100 ml Comments: Pedro you were seen today for fevers cough and myalgias. You are fully vaccinated for COVID-19 but we are screening you in case. We will only call you if the result is positive. Please remain in quarantine until you know the results. Your chest x-ray did not show any findings of pneumonia. However you have a very strong and severe cough reflex. I am prescribing some lidocaine which may help soothe and numb your throat and prevent that severe reflux. I am also prescribing Tessalon Perles to help reduce the severity of your cough. If at any point you feel that your symptoms are worsening, fevers persist beyond 1 week, you have uncontrolled vomiting or severe shortness of breath and please return immediately to the ER for a second evaluation. Your prescriptions have been sent to the [facility] in [place].
--- NOTE | 2021-07-26 15:50 | XRAY Report ---
PROCEDURE: Chest 1 View X-Ray INDICATIONS: chest pain TECHNIQUE: One view of the chest was acquired. COMPARISON: None FINDINGS: Surgical changes and devices: None. Lungs and pleura: No pleural effusions or pneumothorax. Lungs are clear. Mediastinum: Mediastinal contours appear normal. Heart size is normal. Bones and chest wall: No suspicious bony lesions. Overlying soft tissues appear unremarkable. IMPRESSION: No acute cardiopulmonary findings Reviewed by: Prasad Melendez MD on 07/26/2021 2:49 PM AKDT Approved by: Prasad Melendez MD on 07/26/2021 2:49 PM AKDT Station ID: [id number]
[2021-07-26 16:51] VITALS: BP 166/108
== END 2021-07-26 16:45 | disposition home or self-care (01) ==
LOC: ED 14:23
DX: J06.9 Acute upper respiratory infection, unspecified (principal); Z20.822 Contact with and (suspected) exposure to COVID-19
CPT/HCPCS: 94640; 99283; 99284

== ENCOUNTER 2022-07-10 18:47 | Emergency (ER) | payer OTHER ==
--- NOTE | 2022-07-10 18:59 | ED Physician Documentation ---
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 Arriving back home, noted some itching rash on left arm. Today it has progressed to whole body. No URI symptoms. No new foods/meds/soaps, etc.) Location: Bodywide, Other (no lesions in mouth nor on palms/feet.) Quality / character: Itchy, Discolored (red), Raised. No: Vesicular Improved by: Benadryl (somewhat less itchy). No: Steroid cream Associated symptoms: No: Fever, Myalgias, Facial swelling, Dyspnea, N/V/D Contributing factors: No: Exposed to medication, Exposed to food, Exposed to soap / lotion, Insect bite /sting, Recent illness Similar symptoms before: Has not had sx before Recently seen: Not recently seen Review of Systems Constitutional: denies: Fever, Chills Nose: denies: Rhinorrhea / runny nose, Congestion Throat: denies: Sore throat Respiratory: denies: Cough GI: denies: Nausea, Vomiting Neurologic: denies: Near syncope, Altered mental status PD PAST MEDICAL HISTORY - Past Medical History Cardiovascular: None Respiratory: None Neuro: None Endocrine/Autoimmune: None Psych: Depression, Anxiety Musculoskeletal: Chronic back pain - Past Surgical History Past Surgical History: Yes - Present Medications Home Medications: Ambulatory Orders Medication Instructions Recorded Confirmed Cetirizine [ZyrTEC] 10 mg PO BID #15 tablet 07/10/22 dexAMETHasone [Decadron] 4 mg PO DAILY #5 tablet 07/10/22 - Allergies Allergies/Adverse Reactions: Allergies Allergy/AdvReac Type Severity Reaction Status Date / Time No Known Drug Allergies Allergy Verified 07/26/21 14:44 - Social History Does the pt smoke?: No Smoking Status: Never smoker Does the pt drink ETOH?: Yes Does the pt have substance abuse?: No - Immunizations Immunizations are current?: Yes PD ED PE NORMAL - Vitals Vital signs reviewed: Yes - General General: Alert and oriented X 3, No acute distress, Well developed/nourished - HEENT HEENT: Moist mucous membranes, Pharynx benign - Neck Neck: Supple, no meningeal sign, No adenopathy - Cardiac Cardiac: RRR, No murmur - Respiratory Respiratory: Clear bilaterally - Abdomen Abdomen: Soft, Non tender - Derm Derm: Normal color, Warm and dry, Other (Body wide blotchy sometimes confluent raised nonvesicular areas consistent with hives. Discrete edges. Numerous number.) - Extremities Extremities: Normal ROM s pain Results - Vitals Vitals: Vital Signs - 24 hr 07/10/22 07/10/22 18:58 19:31 Temperature 36.8 C Heart Rate 79 83 Respiratory 19 18 Rate Blood Pressure 133/82 H 124/81 H O2 Saturation 100 96 Oxygen O2 Source Room air PD MEDICAL DECISION MAKING - ED course Complexity details: considered differential (No obvious precipitant for highs. However no URI symptoms and rather abrupt onset without vesicles. Looks like allergic reaction. He was concerned about monkey box but this does not look like that.), d/w patient Departure - Departure Disposition: 01 Home, Self Care Clinical Impression: Hives of unknown origin Condition: Stable Record reviewed to determine appropriate education?: Yes Instructions: ED Urticaria Follow-Up: [facility] [Provider Group] Prescriptions: dexAMETHasone [Decadron] 4 mg PO DAILY #5 tablet Cetirizine [ZyrTEC] 10 mg PO BID #15 tablet Comments: The appearance, onset, symptoms of this in the absence of viral type symptoms looks consistent with hives or allergic reaction and not a viral exanthem. I would treated with cetirizine long-acting antihistamine twice daily for the next several days to week. Add in Benadryl every 6-8 hours if needed for itchiness. Cool towels or showers may help with the itching as well. Heat will make it feel much worse. I would add Decadron steroid daily for the next 5 days. See how this does into tomorrow. It should start tapering with the medication and resolve over a day or 2. If its continuing to worsen or you develop fever coughing runny nose aches then we can rethink infectious cause instead. I sent your prescription to your preferred [facility] pharmacy. Discharge Date/Time: 07/10/22 19:32
[2022-07-10] MEDS ORDERED: CHERRY SYRUP 10 ML UDC PO ONE (19:17)
[2022-07-10] MEDS ORDERED: CETIRIZINE 10 MG TABLET PO STA (19:17)
[2022-07-10] MEDS ORDERED: diphenhydrAMINE 25 MG CAPSULE PO STA (19:17)
[2022-07-10] MEDS ORDERED: DEXAMETHASONE 10 MG/ML VIAL PO STA (19:17)
[2022-07-10 19:31] VITALS: BP 124/81
== END 2022-07-10 19:32 | disposition home or self-care (01) ==
LOC: ED 18:47
DX: L50.9 Urticaria, unspecified (principal)
CPT/HCPCS: 99282; A9270

== ENCOUNTER 2022-08-30 00:11 | Emergency (ER) | payer OTHER ==
--- NOTE | 2022-08-30 02:01 | ED Physician Documentation ---
PD HPI BACK PAIN - Stated complaint Stated Complaint: BACK PX - Chief complaint Chief Complaint: Back Pain - History obtained from History obtained from: Patient - History of Present Illness Timing - onset: Yesterday Timing - details: Abrupt onset Location: Lower, Left Quality: Pain, Spasm, Similar to prior episodes Associated symptoms: Numbness (down LLE). No: Fever, Weakness, Incontinent of urine, Unable to urinate, Hematuria, Incontinent of stool Improves with: Rest Worsened by: Movement - Additional information Additional information: patient c/o exacerbation of recurrent / chronic left low back pain. This was exacerbated yesterday when he slipped on wet walkway leading from his garage to his house, slipped and fell on wet stairs. He had sudden onset of this left lower back pain but denies any other injuries, including head/neck injury. He has been seen in this ED in the past for this pain. Patient took flexeril , ibuprofen, acetaminophen without adequate relief Review of Systems Constitutional: denies: Fever : denies: Unable to Void, Incontinent Musculoskeletal: reports: Back pain. denies: Neck pain, Extremity pain, Joint pain, Pain with weight bearing Neurologic: reports: Numbness (LLE). denies: Focal weakness, Head injury PD PAST MEDICAL HISTORY - Past Medical History Past Medical History: Yes Cardiovascular: None Respiratory: None Neuro: None Endocrine/Autoimmune: None Psych: Depression, Anxiety Musculoskeletal: Chronic back pain - Past Surgical History Past Surgical History: Yes - Present Medications Home Medications: Ambulatory Orders Medication Instructions Recorded Confirmed Cetirizine [ZyrTEC] 10 mg PO BID #15 tablet 07/10/22 dexAMETHasone [Decadron] 4 mg PO DAILY #5 tablet 07/10/22 Oxycodone HCl/Acetaminophen 1 - 2 each PO Q6H PRN #14 tablet 08/30/22 [Percocet 5-325 mg Tablet] diazePAM [Valium] 5 mg PO TID PRN #15 tablet 08/30/22 - Allergies Allergies/Adverse Reactions: Allergies Allergy/AdvReac Type Severity Reaction Status Date / Time No Known Drug Allergies Allergy Verified 08/30/22 00:17 - Social History Does the pt smoke?: No Smoking Status: Never smoker Does the pt drink ETOH?: Yes Does the pt have substance abuse?: No - Immunizations Immunizations are current?: Yes PD ED PE NORMAL - Vitals Vital signs reviewed: Yes - General General: Alert and oriented X 3, Well developed/nourished, Other (appears to be in obvious painful distress; standing at bedside) - Abdomen Abdomen: Soft, Non tender - Back Back: No CVA TTP, No spinal TTP, Other (left parathoracic spasm. no midline bony tenderness. the area of tenderness and spasm is below left posterior ribs and above left posterior pelvic crest) - Derm Derm: No rash - Extremities Extremities: Normal ROM s pain - Neuro Neuro: No motor deficit (5/5 bilateral dorsi/plantarflexion), No sensory deficit (LTS intact BLE) Results - Vitals Vitals: Vital Signs - 24 hr 08/30/22 08/30/22 08/30/22 00:17 02:20 04:15 Temperature 36.6 C 36.3 C L Heart Rate 101 H 88 65 Respiratory 23 19 16 Rate Blood Pressure 122/62 121/61 160/72 H O2 Saturation 100 99 98 Oxygen O2 Source Room air PD MEDICAL DECISION MAKING - ED course Complexity details: reviewed old records, re-evaluated patient, considered differential, d/w patient ED course: Presents with exacerbation of left LBP with muscle spasm; during H+P he has episodes of severe painful distress (during which he says he feels the left lower back muscles spasming). He has no bony tenderness including midline of back, no neurologic deficits (reports LLE numbness, but LTS intact on exam; he says the numbness has been a feature of his LBP exacerbations). He is given 2mg IM hydromorphone and 5mg valium PO with good effect: on reevaluation, he is awake, alert, NAD at rest. He reports significant improvement, and although the pain returns when he stands and ambulates, it is much less severe than before these medications were given. He is given 10mg PO oxycodone and 5mg valium PO (total of 10mg valium) prior to d/c for the residual back pain and spasm, and prescriptions for percocet and valium are electronically submitted to his pharmacy of choice I am prescribing a short course of short-acting opioid pain medication for this patient. I have reviewed the patients MANAGER ANDROID and no concerning findings were noted. I have discussed that the opioids are for short term therapy only, and will not be refilled from the ED Departure - Departure Disposition: 01 Home, Self Care Clinical Impression: Back pain Qualifiers: Back pain location: low back pain Chronicity: chronic Back pain laterality: left Sciatica presence: without sciatica Qualified Code(s): M54.50 - Low back pain, unspecified Condition: Good Instructions: ED Spasm Back No Trauma, ED Neck Back Pain General Follow-Up: [facility] [Provider Group] Prescriptions: Oxycodone HCl/Acetaminophen [Percocet 5-325 mg Tablet] 1 - 2 each PO Q6H PRN #14 tablet PRN Reason: pain diazePAM [Valium] 5 mg PO TID PRN #15 tablet PRN Reason: Spasms Comments: Prescriptions for valium (for muscle relaxant property) and percocet (narcotic pain medication) have been electronically submitted to [facility] pharmacy in [place]. I am prescribing a short course of narcotic pain medication for you. These are potentially dangerous and addictive medications that should be used carefully. These medications may constipate you. Take an cwwn-pwk-wsndxpj stool softener (docusate) twice daily with plenty of water while taking these medications. If you go 24 hours without a bowel movement, take twlc-upb-mirxfay miralax, per package instructions. Do not drink or drive while taking these medications. If you received narcotic or sedating medications while in the emergency department, do not drive for 24 hours. Store this medication in a safe, secure place and out of reach of children. It is a violation of federal law to give or sell this medication to another person or to use in a manner other than prescribed. The ED will not refill narcotic prescriptions, including prescriptions lost or stolen. To dispose of unwanted medications: 1. [facility] at [address] in [place] has a medication drop box. They accept prescription medications (in pill form) Tuesday through Tuesday 9:00 a.m. to 5:00 p.m. 2. The [facility] Police Department accepts prescription medications (in pill form only) for disposal year round. Call for more information. 3. Contact the [facility] for the next [facility] sponsored prescription drug collection event. , [phone], or [phone]; Forms: Activity restrictions Discharge Date/Time: 08/30/22 04:15
[2022-08-30] MEDS ORDERED: diazePAM 5 MG TABLET PO STA ×2 (02:08→03:39)
[2022-08-30] MEDS ORDERED: HYDROmorphone 1 MG/ML CARPUJECT IM STA (02:08)
[2022-08-30] MEDS ORDERED: oxyCODONE 5 MG TABLET PO STA (03:39)
[2022-08-30 04:17] VITALS: BP 160/72
== END 2022-08-30 04:15 | disposition home or self-care (01) ==
LOC: ED 00:11
DX: M54.50 Low back pain, unspecified (principal)
CPT/HCPCS: 96372; 99283; 99284; A9270; J1170

== ENCOUNTER 2022-11-01 13:08 | Emergency (ER) | payer OTHER ==
[2022-11-01] MEDS ORDERED: HYDROmorphone 1 MG/ML CARPUJECT IVP STA (14:50)
--- NOTE | 2022-11-01 14:54 | ED Physician Documentation ---
History of Present Illness - Stated complaint Stated Complaint: BACK PX - Chief complaint Chief Complaint: Back Pain - Additonal information Additional information: 37-year-old male presents emergency department for evaluation of acute on chr onic low back pain. He reports a history of a disc herniation. He is currently undergoing physical therapy. 3 mornings ago he simply moved wrong in bed and felt his right side of the back seized. Since then he has found no comfortable position. He has pain that radiates down the right leg. Has had no fevers, saddle anesthesia, loss of bowel or bladder function. He has been alternating ibuprofen and Tylenol as well as taking Flexeril. He is used ice and lidocaine patches without relief of pain. He was unable to see [employer] thus he returns to the ER. History provided by patient. Reliable historian. Review of Systems Constitutional: reports: Reviewed and negative Cardiac: reports: Reviewed and negative Respiratory: reports: Reviewed and negative GI: reports: Reviewed and negative : reports: Reviewed and negative Skin: reports: Reviewed and negative Musculoskeletal: reports: Back pain, Extremity pain Neurologic: denies: Focal weakness, Numbness, Syncope, Seizure Psychiatric: reports: Reviewed and negative PD PAST MEDICAL HISTORY - Past Medical History Past Medical History: Yes Cardiovascular: None Respiratory: None Neuro: None Endocrine/Autoimmune: None Psych: Depression, Anxiety Musculoskeletal: Chronic back pain - Past Surgical History Past Surgical History: Yes - Present Medications Home Medications: Ambulatory Orders Medication Instructions Recorded Confirmed Cyclobenzaprine HCl 5 mg PO BID 11/01/22 11/01/22 DULoxetine [Cymbalta] 20 mg PO DAILY 11/01/22 11/01/22 Propranolol [Inderal] 10 mg PO DAILY PRN 11/01/22 11/01/22 methylPREDNISolone [Medrol] 4 mg PO DAILY #1 tab 11/01/22 oxyCODONE [Roxicodone] 5 mg PO BID PRN #10 tablet 11/01/22 - Allergies Allergies/Adverse Reactions: Allergies Allergy/AdvReac Type Severity Reaction Status Date / Time No Known Drug Allergies Allergy Verified 11/01/22 13:18 - Social History Does the pt smoke?: No Smoking Status: Never smoker Does the pt drink ETOH?: Yes Does the pt have substance abuse?: No - Immunizations Immunizations are current?: Yes PD ED PE NORMAL - General General: Alert and oriented X 3. No: No acute distress (Appears uncomfortable and in pain) - Cardiac Cardiac: RRR, No murmur - Respiratory Respiratory: Clear bilaterally - Abdomen Abdomen: Normal bowel sounds, Soft, Non tender, Non distended - Back Back: No spinal TTP (No tenderness elicited with palpation of the lower midline lumbar spine. Positive straight leg exam on the right. Motor strength is 5 of 5 bilaterally. Generalized tenderness with palpation of the right paraspinous muscles. Movement seems to cause the patient to freeze in pain reporting spasm.) - Derm Derm: Normal color, No rash - Extremities Extremities: No deformity, No tenderness to palpate, Normal ROM s pain - Neuro Neuro: Alert and oriented X 3 Eye Opening: Spontaneous Motor: Obeys Commands Verbal: Oriented GCS Score: 15 Results - Vitals Vitals: Vital Signs - 24 hr 11/01/22 13:13 Temperature 36.4 C L Heart Rate 95 Respiratory 16 Rate Blood Pressure 142/97 H O2 Saturation 99 Oxygen O2 Source Room air PD Medical Decision Making - ED course Complexity details: reviewed results, re-evaluated patient, considered differential, d/w patient ED course: 37-year-old male presents emergency department for evaluation of acute low back pain with radiation down the right leg. Does have a history of chronic low back pain for which she is undergoing physical therapy. This pain began when he tried to get out of bed 3 mornings ago and developed spasm. Despite what seems usual routine conservative care measures including ibuprofen, muscle relaxers lidocaine ice he continues to have persistent pain. Clinically there are no red flags. He does have an exam consistent with sciatica however. I did private security guard this gentleman 1 mg of Dilaudid IM and on reevaluation he is feeling markedly better. I believe that he would benefit from a short course of steroids to help with inflammation. I will also offer a limited amount of oxycodone for very severe pain only. Patient was aware that we would be unable to represcribe this in the future moving forward. He is encouraged to follow very closely with primary care providers. If not markedly better over the next week or 2 and he fails to improve with physical therapy MRI may be indicated. Usual emergent return precautions discussed for worsening symptoms Departure - Departure Disposition: 01 Home, Self Care Clinical Impression: Low back pain with sciatica Qualifiers: Chronicity: acute Back pain laterality: right Sciatica laterality: sciatica of right side Qualified Code(s): M54.41 - Lumbago with sciatica, right side Condition: Stable Record reviewed to determine appropriate education?: Yes Instructions: ED Sciatica Prescriptions: methylPREDNISolone [Medrol] 4 mg PO DAILY #1 tab oxyCODONE [Roxicodone] 5 mg PO BID PRN #10 tablet PRN Reason: Pain Comments: Pedro I would [place] It is important that he stay as mobile and walk as often as you can. I have sent a [facility] [place]. Please take as directed on the pack. It is important you continue to pursue physical therapy. Reasons to return to the emergency department would be the development of any bowel or bladder incontinence, loss of sensation in your genital area or weakness in your leg I am prescribing a short course of narcotic pain medication for you. These are potentially dangerous and addictive medications that should be used carefully. These medications may constipate you. Take an itdr-scx-hvjvabj stool softener (docusate) twice daily with plenty of water while taking these medications. If you go 24 hours without a bowel movement, take yxbe-esz-zpidspj miralax, per package instructions. Do not drink or drive while taking these medications. If you received narcotic or sedating medications while in the emergency department, do not drive for 24 hours. Store this medication in a safe, secure place and out of reach of children. It is a violation of federal law to give or sell this medication to another person or to use in a manner other than prescribed. The ED will not refill narcotic prescriptions, including prescriptions lost or stolen. To dispose of unwanted medications: 1. [facility] at [address] in [place] has a medication drop box. They accept prescription medications (in pill form) Tuesday through Tuesday 9:00 a.m. to 5:00 p.m. 2. The [facility] Police Department accepts prescription medications (in pill form only) for disposal year round. Call for more information. 3. Contact the [facility] for the next [facility] sponsored prescription drug collection event. , [phone], or [phone]; Note that many narcotic pain relievers also contain Tylenol/acetaminophen. Please ensure that your total dose of acetaminophen from all sources does not exceed 3 g (3000 mg) per day.
[2022-11-01] MEDS ORDERED: HYDROmorphone 1 MG/ML CARPUJECT IM STA (15:00)
[2022-11-01 15:35] VITALS: BP 138/86
== END 2022-11-01 15:35 | disposition home or self-care (01) ==
LOC: ED 13:08
DX: M54.41 Lumbago with sciatica, right side (principal)
CPT/HCPCS: 96374; 99283; J1170

== ENCOUNTER 2023-03-08 12:04 | Outpatient (CLI) | payer OTHER ==
[~2023-03-08 12:04] MED LIST: GADOBUTROL 7.5 MMOL/7.5 ML VIAL ONE; LIDOCAINE-MPF 1% 5 ML VIAL ONE; iohexoL-240 10 ML VIAL IVP ONE
[2023-03-08] MEDS: GADOBUTROL 7.5 MMOL/7.5 ML VIAL IVP ONE (13:07)
[2023-03-08] MEDS: LIDOCAINE-MPF 1% 5 ML VIAL TD ONE (13:07)
[2023-03-08] MEDS: iohexoL-240 10 ML VIAL IVP ONE (13:08)
--- NOTE | 2023-03-08 14:46 | XRAY Report ---
PROCEDURE: Arthrogram Needle Placement INDICATIONS: SHOULDER PAIN CONTRAST: Intra-articular contrast FLUOROSCOPY TIME: 0.2 min TECHNIQUE: The indications, alternatives, benefits, risks, and complications of the procedure were explained to the patient. Written informed consent was obtained and placed in the chart. The shoulder was examin ed fluoroscopically and a site for needle placement chosen for entry into the glenohumeral joint from an anterior approach. The skin was prepped and draped in the usual fashion, and 1% lidocaine infilt rated from skin down to joint capsule. A spinal needle was inserted into the glenohumeral joint, and a small amount of iodinated contrast media injected to confirm intra-articular placement of the need le tip. This was followed by approximately 12 mL dilute solution of a gadolinium containing MR contr ast agent. The needle was removed and a dressing was applied. The patient was given postprocedural instructions and sent to the MR suite for MR imaging. FINDINGS: A single fluoroscopic spot image demonstrates intra-articular location of injected iodinated contrast . IMPRESSION: Successful fluoroscopically guided administration of dilute Gadolinium solution into the shoulder gretchen medeiros for MR arthrogram. Reviewed by: Luis E Blanco MD on 03/08/2023 2:45 PM PDT Approved by: Luis E Blanco MD on 03/08/2023 2:45 PM PDT Station ID: [id number]
--- NOTE | 2023-03-08 17:00 | MRI Report ---
PROCEDURE: ARTHROGRAM SHOULDER - RT INDICATIONS: SHOULDER PAIN CONTRAST: Dilute intra-articular gadolinium TECHNIQUE: After the administration of 12 mL of dilute intra-articular Gadolinium contrast, oblique coronal T1 a nd T2 spin echo with fat saturation, oblique sagittal T1 spin echo with and without fat saturation, o blique sagittal T2 fast spin echo with fat saturation, axial T1 spin echo with fat saturation through the shoulder. COMPARISON: None. FINDINGS: Image quality: Excellent. Rotator cuff: Mild ill-defined T2 signal elevation within the supraspinatus and infraspinatus tendon s at the humeral insertion sites extending the muscular tendinous junctions, thickening tendinopathy. Superimposed low-grade intrasubstance tearing of the anterior, mid, and posterior supra spinatus as well as the anterior and mid infraspinatus tendon at the humeral insertion site. Subscapularis and te res minor tendons are intact. No rotator cuff atrophy. The supraspinatus, infraspinatus, and subscapu yesika tendons appear intact throughout. No rotator cuff muscle atrophy on sagittal images. Bones and bursae: No bone marrow contusions or fractures. Mild acromioclavicular joint degeneration. The acromion demonstrates conventional anatomy, without an os acromiale. Capsule and soft tissues: The labrum and glenohumeral ligaments appear intact. The long head of the biceps tendon demonstrates normal location and morphology. The rotator interval appears normal, wit hout fibrosis. The coracohumeral ligament is of normal thickness. No intra-articular bodies. IMPRESSION: 1. Supraspinatus and infraspinatus tendinopathy with superimposed low-grade partial thickness tears. 2. Mild acromioclavicular joint osteoarthritis. Reviewed by: Nelly Chand MD on 03/08/2023 4:59 PM PDT Approved by: Nelly Chand MD on 03/08/2023 4:59 PM PDT Station ID: [id number]
== END 2023-03-08 12:05 | disposition home or self-care (01) ==
LOC: DI 12:04
PROVIDERS: ATTEND General Practice
DX: M75.111 Incomplete rotator cuff tear or rupture of right shoulder, not specified as traumatic (principal); M19.011 Primary osteoarthritis, right shoulder
CPT/HCPCS: 23350; 73222; 77002; A9585; Q9966

== ENCOUNTER 2024-02-16 15:08 | Emergency (ER) | payer OTHER ==
--- NOTE | 2024-02-16 15:38 | ED Physician Documentation ---
History of Present Illness - Stated complaint Stated Complaint: RT ELBOW SWELLING,POST SURGICAL - Chief complaint Chief Complaint: Ext Problem - History obtained from History obtained from: Patient - History of Present Illness Timing: Today Pain level max: 5 Pain level now: 5 - Additonal information Additional information: Patient is a 38-year-old male who presents to the emergency department stating that he has R shoulder surgery last month with a [place] orthopedic surgeon for Labrum repair, rotator cuff repair and bicep tendinitis. He states during physical therapy today he felt a pop in his shoulder and now has swelling at the right elbow. He states the swelling has decreased. [place] here for further care as they have "no appointments". No numbness or tingling. No redness. He states his pain is basically unchanged. Review of Systems Constitutional: denies: Fever, Chills GI: denies: Vomiting, Diarrhea Skin: denies: Rash Musculoskeletal: denies: Neck pain, Back pain Neurologic: denies: Headache PD PAST MEDICAL HISTORY - Past Medical History Past Medical History: Yes Cardiovascular: Hypertension Respiratory: None Neuro: None Endocrine/Autoimmune: None Psych: Depression, Anxiety Musculoskeletal: Chronic back pain - Past Surgical History Past Surgical History: Yes - Present Medications Home Medications: Ambulatory Orders Medication Instructions Recorded Confirmed Cyclobenzaprine HCl 5 mg PO BID 11/01/22 02/16/24 DULoxetine [Cymbalta] 20 mg PO DAILY 11/01/22 02/16/24 Propranolol [Inderal] 10 mg PO DAILY PRN 11/01/22 02/16/24 - Allergies Allergies/Adverse Reactions: Allergies Allergy/AdvReac Type Severity Reaction Status Date / Time No Known Drug Allergies Allergy Verified 02/16/24 15:12 - Social History Does the pt smoke?: No Smoking Status: Never smoker Does the pt drink ETOH?: Yes Does the pt have substance abuse?: No - Immunizations Immunizations are current?: Yes - POLST Patient has POLST: No PD ED PE NORMAL - Vitals Vital signs reviewed: Yes - General General: Alert and oriented X 3, No acute distress - HEENT HEENT: Moist mucous membranes - Neck Neck: Supple, no meningeal sign - Derm Derm: Warm and dry - Extremities Extremities: Other - Neuro Neuro: Alert and oriented X 3 - Psych Psych: Normal mood, Normal affect - Free text exam Free text exam: While here are old surgical incisions to the right shoulder. No redness, swelling, bruising. Limited range of motion of the right shoulder secondary to pain. He states this is his usual pain postsurgery. He also has swelling over the olecranon process but no tenderness. He is able to rotate the forearm, does have some pain at the shoulder with this. Results - Vitals Vitals: Vital Signs - 24 hr 02/16/24 02/16/24 15:13 16:45 Temperature 36.5 C Heart Rate 87 79 Respiratory 16 20 Rate Blood Pressure 149/98 H 140/91 H O2 Saturation 98 100 Oxygen O2 Source Room air - Rads (name of study) R humerus xray Relevant Findings:: Final report received, See rad report PD Medical Decision Making - ED course Complexity details: reviewed results, re-evaluated patient, considered differential, d/w patient ED course: No acute finding on x-ray. No evidence of acute fracture or dislocation. No balled up muscle to suggest full bicep tendon rupture. Neurovascularly intact. Placed in a sling for comfort. Will prescribe pain medication for home. Will have him follow-up with his orthopedist for further care. Patient declines any pain medication here or for home. Patient counseled regarding signs and symptoms for which I believe and urgent re-evaluation would be necessary. Patient with good understanding of and agreement to plan and is comfortable going home at this time This document was made in part using voice recognition software. While efforts are made to proofread this document, sound alike and grammatical errors may occur. Departure - Departure Disposition: 01 Home, Self Care Clinical Impression: Shoulder pain, right Qualifiers: Chronicity: acute Qualified Code(s): M25.511 - Pain in right shoulder Condition: Good Instructions: ED Torn Rotator Cuff Follow-Up: AMILCAR GILLIS MD [Primary Care Provider] - Within 1 week Comments: I would make sure that you follow-up with your orthopedist for further valuation and to ensure there is no injury to the shoulder from your physical therapy today. Your x-ray does not show any acute abnormalities. Please return if you worsen. Forms: PCP List Discharge Date/Time: 02/16/24 16:46
--- NOTE | 2024-02-16 16:31 | XRAY Report ---
PROCEDURE: Humerus RT INDICATIONS: R shoulder/elbow pain TECHNIQUE: 2 views of the humerus were acquired. COMPARISON: None. FINDINGS: Bones: No fractures or dislocations. No suspicious bony lesions. Soft tissues: No suspicious soft tissue calcifications or masses. IMPRESSION: No visualized acute fracture or dislocation. However, occult injury cannot be excluded. Recommend [place] rt interval imaging follow-up in 7-10 days as clinically indicated for additional evaluation. Reviewed by: Marisol Moses MD on 02/16/2024 4:30 PM PDT Approved by: Marisol Moses MD on 02/16/2024 4:30 PM PDT Station ID: [id number]
[2024-02-16 16:56] VITALS: BP 140/91; O2SAT 100
== END 2024-02-16 16:46 | disposition home or self-care (01) ==
LOC: ED 15:08
DX: R60.0 Localized edema (principal); M25.511 Pain in right shoulder; Z98.890 Other specified postprocedural states
CPT/HCPCS: 99283

== ENCOUNTER 2024-06-19 16:42 | Outpatient (CLI) | payer OTHER ==
--- NOTE | 2024-06-20 17:44 | MRI Report ---
PROCEDURE: Cervical Spine WO INDICATIONS: CERVICALGIA TECHNIQUE: Noncontrast sagittal T1 spin echo and T2 fast spin echo, sagittal STIR, foraminal oblique sagittal T2 fast spin echo, and axial gradient echo or T2 fast spin echo through the cervical spine. COMPARISON: None. FINDINGS: Image quality: Excellent. Alignment and Curvature: There is overall straightening of the normal cervical lordosis. Bone Marrow: Marrow demonstrates normal overall signal. Spinal Cord: Visualized spinal cord has normal size and signal. No cerebellar tonsillar herniation. Paraspinous Soft Tissues: No paravertebral masses. Prevertebral soft tissues are normal in thicknes s. C2-C3: The disc height and disc signal are well preserved. Mild disc osteophyte complex is seen. Mild facet hypertrophy is seen. There is moderate left-sided and no right-sided neuroforaminal narrow ing. No central canal narrowing is seen. C3-C4: The disc height and disc signal are well preserved. Mild to moderate disc osteophyte complex is seen. Mild facet hypertrophy is seen. There is at least moderate left-sided and moderate right-s ided neuroforaminal narrowing. Mild central canal narrowing is seen. C4-C5: The disc height and disc signal are well preserved. Mild to moderate disc osteophyte complex is seen, which is eccentric to the left. Mild facet hypertrophy is seen. There is moderate to severe left-sided and moderate right-sided neuroforaminal narrowing. No central canal narrowing is seen. C5-C6: The disc height is well-preserved. There is loss of disc signal seen. Moderate disc osteophy te complex is seen. Moderate facet hypertrophy is seen. Mild to moderate bilateral neuroforaminal na rrowing can be seen. Mild central canal narrowing is seen. C6-C7: The disc height and disc signal are well preserved. Moderate disc osteophyte complex is see n. Moderate facet hypertrophy is seen. There is at least moderate bilateral neuroforaminal narrowing seen. No central canal narrowing is seen. C7-T1: The disc height and disc signal are well preserved. Moderate disc osteophyte complex is see n. There is moderate left-sided and no right-sided neuroforaminal narrowing. No central canal narrowi ng is seen. IMPRESSION: Multiple levels of cervical spine degenerative change can be seen, which are considered to be prematu re for age. Reviewed by: Eleazar Foley MD on 06/20/2024 4:43 PM RONALD Approved by: Eleazar Foley MD on 06/20/2024 4:43 PM AKKAREN Station ID: [id number]
== END 2024-06-19 16:43 | disposition home or self-care (01) ==
LOC: DI 16:42
PROVIDERS: ATTEND Student in an Organized Health Care Education/Training Program
DX: M47.812 Spondylosis without myelopathy or radiculopathy, cervical region (principal); M48.02 Spinal stenosis, cervical region

== ENCOUNTER 2024-07-09 16:06 | Outpatient (CLI) | payer OTHER ==
--- NOTE | 2024-07-10 11:32 | MRI Report ---
Wrist RT WO CLINICAL HISTORY: 39 years of age, Male, R WRIST PAIN. COMPARISON: None Technique: Multisequence, multiplanar MRI of the right wrist was performed Without contrast. IV CONTRAST: Not given FINDINGS: Marrow, osseous and cartilaginous structures: Mild subchondral cystic changes at the ulnar aspect of the proximal lunate with associated mild subchondral marrow edema. Mild ulnar positive variance. 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 Triangular fibrocartilage: Central disc perforation. The styloid and the foveal attachments are unrem arkable. Ligaments: The scapholunate and lunotriquetral ligaments are intact. The dorsal and volar extrinsic l igaments are normal in course, contour and signal. Carpal tunnel: The flexor tendons are intact without evidence of tendinosis, tenosynovitis, or discre te tear. Extensor tendons: Mild tendinosis of the extensor carpi ulnaris within the ulnar groove. Nerves: The median and ulnar nerves are normal in course, signal and thickness. The contents of Guyon 's canal are normal. Masses: No ganglion cyst. IMPRESSION: 1.Findings suggestive of ulnar impaction syndrome, with mild subchondral cystic changes at the ulnar aspect of the proximal lunate, mild ulnar positive variance, and central disc perforation of the tria ngular fibrocartilage. 2.Mild tendinosis of the extensor carpi ulnaris within the ulnar groove. Reviewed by: Olga Gage MD on 07/10/2024 11:30 AM PDT Approved by: Olga Gage MD on 07/10/2024 11:30 AM PDT Station ID: [id number]
== END 2024-07-09 16:07 | disposition home or self-care (01) ==
LOC: DI 16:06
PROVIDERS: ATTEND Student in an Organized Health Care Education/Training Program
DX: M67.931 Unspecified disorder of synovium and tendon, right forearm (principal)